=== PATIENT | female | born 1955 | race Caucasian/White ===

== ENCOUNTER 2020-10-12 10:58 | Emergency (ER) | payer MEDICARE ==
[2020-10-12 11:30] LABS: BASOPHIL 0.2 % (0-2); EOSINOPHIL 0.3 % (0-7); HCT 36.7 % (37.0-47.0); HGB 12.5 g/dl (12.5-16.0); LYMPHOCYTE 5.5 % (15-48); MCH 34.3 pg (25.0-31.0); MCHC 34.1 g/dL (32.0-36.0); MCV 100.8 fL (78.0-100.0); MONOCYTE 8.6 % (0-12); MPV 8.3 fL (6.0-9.5); NRBC 0; PLT 738 K/uL (150-400); RBC 3.64 M/uL (4.20-5.40); RDW 16.2 % (11.5-14.0)
[2020-10-12 11:50] LABS: ACETAMINOPHEN (TYLENOL) < 2.0 ug/mL (10.0-30.0); ALBUMIN 2.8 g/dL (3.4-5.0); ALKALINE PHOSHATASE 137 U/L (46-116); ALT 43 U/L (14-59); AST 43 U/L (15-37); BILIRUBIN - TOTAL 0.5 mg/dL (0.2-1.0); BUN 18 mg/dL (7-18); BUN/CREAT RATIO (CALC) 14.5 RATIO; CHLORIDE 103 mmol/L (98-107); CO2 (BICARBONATE) 21 mmol/L (21-32); CREATININE 1.24 mg/dL (0.51-0.95); GLOBULIN (CALCULATION) 3.7 g/dL; GLUCOSE 116 mg/dL (74-106); POTASSIUM 3.1 mmol/L (3.5-5.1); TOTAL PROTEIN 6.5 g/dL (6.4-8.2)
== END 2020-10-12 16:15 | disposition other institution (70) ==
LOC: FER 10:58
PROVIDERS: Emergency Medicine
DX: F32.9 Major depressive disorder, single episode, unspecified (principal); R62.7 Adult failure to thrive; Z20.822 Contact with and (suspected) exposure to COVID-19
CPT/HCPCS: 36415; 80053; 85025; 93005; G0480; J3411; J3475; J7030; J7120; U0002